=== PATIENT | female | born 1990 | race Two or more races ===

== ENCOUNTER 2022-12-06 09:06 | Outpatient (CLI) | payer OTHER | END 2022-12-06 09:21 | disposition home or self-care (01) | LOC: RAD 09:06 | PROVIDERS: ATTEND Psychiatry & Neurology Neurology | DX: R10.2 Pelvic and perineal pain (principal); Q51.9 Congenital malformation of uterus and cervix, unspecified; N97.9 Female infertility, unspecified ==

== ENCOUNTER → 2025-01-25 | Emergency (ER) | payer OTHER ==
[~2025-01-25] VITALS: Ht 160 cm; Wt 61.2 kg
[~2025-01-25] MED LIST: ACETAMINOPHEN 500 MG GEL..CAP PO ONE; PRENATAL TABLE1 EAC1 PO
[2025-01-25 11:55] LABS: BASO % 0.5 % (0.1-1.2); EOS # 0.03 (0.04-0.54); EOS % 0.4 % (0.7-7.0); HEMATOCRIT 40.4 % (34.1-44.9); HEMOGLOBIN 13.8 g/dL (11.2-15.7); LYMPH # 2.31 (1.18-3.74); LYMPH % 29.8 % (19.3-53.1); MEAN CORPUSCULAR HEMOGLOBIN 30.4 pg (25.6-32.2); MONO # 0.77 (0.24-0.82); MONO % 9.9 % (4.7-12.5); NEUT # 4.57 (1.56-6.13); NEUT % 59.1 % (34.0-71.1); PLATELET COUNT 296 K/uL (163-369); RED BLOOD COUNT 4.54 M/uL (3.93-5.22); RED CELL DISTRIBUTION WIDTH 13.1 % (11.6-14.4)
[2025-01-25 11:59] LABS: URINE APPEARANCE Clear; URINE BILIRRUBIN Negative (NEGATIVE); URINE BLOOD Large; URINE COLOR Yellow; URINE GLUCOSE Negative (NEGATIVE); URINE KETONE Negative (NEGATIVE); URINE LEUKOCYTE Trace; URINE NITRATE Negative; URINE PROTEIN Trace (NEGATIVE); URINE UROBILINOGEN 0.2 E.U./dl
[2025-01-25 12:03] LABS: URINE BACTERIA 304.6 uL (0.0-1933); URINE RBC 45.2 uL (0.0-20.8); URINE WBC 64.8 uL (0.0-23.2)
[2025-01-25 12:17] LABS: CALCIUM 9.1 mg/dL (8.5-10.1); CREATININE SERUM 0.69 mg/dL (0.55-1.02); GFR 97.39; POTASSIUM 4.14 mEq/L (3.5-5.1)
== END | disposition home or self-care (01) ==
LOC: ER 08:54
PROVIDERS: Emergency Medicine
DX: N92.6 Irregular menstruation, unspecified (principal)